=== PATIENT | male | born 1955 | race Caucasian/White ===

== ENCOUNTER → 2024-01-20 10:31 | Outpatient (REF) | payer OTHER, SELFPAY ==
[2024-01-21 20:46] LABS: Hepatitis B Surface Antibody Positive
== END ==
LOC: OHS 10:31
PROVIDERS: ATTENDING PHYSICIAN Nurse Practitioner Family
DX: Z23 Encounter for immunization (principal)
CPT/HCPCS: 36415; 86706

== ENCOUNTER → 2024-02-12 10:53 | Outpatient (REF) | payer MEDICARE, OTHER, SELFPAY | LOC: REG 10:53 | PROVIDERS: ATTENDING PHYSICIAN Specialist | DX: R35.1 Nocturia (principal); R35.0 Frequency of micturition; N40.1 Benign prostatic hyperplasia with lower urinary tract symptoms | CPT/HCPCS: 36415; G0103 ==

== ENCOUNTER 2024-03-15 21:50 | Emergency (ER) | payer MEDICARE, OTHER, SELFPAY ==
[2024-03-15 21:53] VITALS: BP 145/88
[2024-03-15 22:35] VITALS: BMI 30.3
[2024-03-15 22:39] VITALS: BP 138/84
--- NOTE | 2024-03-15 22:46 | ED.GENMED ---
History of Present Illness
<MEAGAN Oliva - Last Filed: 03/16/24 02:34>
General
Chief Complaint: Chest Problem
Source: patient
Exam Limitations: none
Time Seen by Provider: 03/15/24 22:36
History of Present Illness
History of Present Illness:
This is a 68 year old male that comes in with c/o chest pain. States that on March 01 and he started to feel sick. On the 03 of March he tested positive for COVID. States that he stayed home for a week. Staets that he had body aches, was
tired and congested. States that he was using his nebulizer 2-3 times daily with albuterol to help keep any consolidation from happening. States that he just had low energy. 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
States that today he was tired and then tonight his chest just did not feel with. States that he had this occasional pain in the center/left of his chest. States that it was like when he started with Bronchitis. Denies any fever, chills, SOB, abd
pain, nausea, vomiting, diarrhea, headache, dizziness, urinary burning.
Past History
<MEAGAN Oliva - Last Filed: 03/16/24 02:34>
Past History
ED Past Medical History: Asthma, GERD and Other (Pneumonia, chronic bronchitis, restrictive lung disease )
ED Past Surgical History: Orthopedic (Right foot surgery, Left and right Knee surgery, Cervical fusion. ) and Other (Percutaneous Discectomy)
Social History
Tobacco: Non-smoker
Alcohol: None
Personal:
Living: alone
Employment: Employed
Family History
Family History: Other (Father had COPD); Negative Diabetes, Hypertension or Early CAD
Review of Systems
<MEAGAN Oliva - Last Filed: 03/16/24 02:34>
Review of Systems
All Other Systems: ROS reviewed and negative except as documented in HPI and ROS
Constitutional: Reports no symptoms; Denies fever or chills
EENT: Reports no symptoms
Respiratory: Reports no symptoms; Denies cough or trouble breathing
Cardiac: Reports chest pain
ABD/GI: Reports no symptoms; Denies abdominal pain, nausea, vomiting or diarrhea
: Reports no symptoms; Denies dysuria, frequency or urgency
Musculoskeletal: Reports no symptoms
Skin: Reports no symptoms
Neurological: Reports no symptoms; Denies dizzy or headache
Psychiatric: Reports no symptoms
Phy Exam
<MEAGAN Oliva - Last Filed: 03/16/24 02:34>
General Physical Exam
General Presentation: well appearing and no apparent distress
General age: appears stated age
General Skin: warm and dry
General Habitus: normal
General Mental: alert
General Hydration: appears well hydrated
ENT Exam
ENT Exam: TM's normal, pharynx normal and neck supple
Eye Exam
Eye Exam: EOMI
Cardiovascular Exam
Cardiovascular Exam: regular rate/rhythm, no edema, no murmur and normal peripheral pulses
Pulmonary Exam
Pulmonary Exam: no respiratory distress, chest non tender, no rhonchi, no wheezing, no cough and other (Rales at bases)
Gastrointestinal Exam
Gastrointestinal Exam: normal bowel sounds, non tender, soft, no organomegaly, no pulsatile mass and non distended
Musculoskeletal Exam
Musculoskeletal Exam: full ROM and no edema
Skin Exam
Skin Exam: normal color, warm/dry, no rash and no petechia
Psychiatric Exam
Psychiatric Exam: normal mood/affect
Course
<MEAGAN Oliva - Last Filed: 03/16/24 02:34>
Orders/Labs/Results
Orders:
Orders
03/15/24 21:53
EKG [Electrocardiogram (*1)] Urgent
Reason for Study: Chest Pain
EKG- Treatment ONCE
03/15/24 22:46
CR Chest - 2 Views Urgent
Comment:
Reason For Exam: Chest pain,
03/15/24 22:48
Complete Blood Count/With Diff Urgent
Comprehensive Metabolic Panel Urgent
Troponin I Q3H
03/16/24 01:55
Troponin I Q3H
Abnormal Lab Results
03/15/24
22:48
Abs Immat Gran (auto) 0.1 H 10^3/uL
(0-0.05)
Absolute Monos (auto) 0.8 H 10^3/uL
(0.1-0.6)
Immature Gran % 0.8 H %
(0-0.5)
Lymphocytes % 18.8 L %
(20.5-51.1)
Monocytes % 9.9 H %
(1.7-9.3)
Glucose 108 H mg/dl
(70-99)
03/15/24 22:48
03/15/24 22:48
Glucose nonfasting. Otherwise labs normal. Troponin <0.012
Second Troponin 0.013
Vital Signs
Initial and Last Documented VS:
Initial Vital Signs
Temp Pulse Resp BP Pulse Ox
97.9 F 98 17 145/88 98
03/15/24 21:53 03/15/24 21:53 03/15/24 21:53 03/15/24 21:53 03/15/24 21:53
Last Documented Vital Signs
Temp Pulse Resp BP Pulse Ox
97.9 F 67 16 125/92 96
03/15/24 21:53 03/16/24 02:15 03/16/24 02:15 03/16/24 02:00 03/16/24 02:15
[place];Navdeep Worley DO - Last Filed: 03/16/24 00:18>
Orders/Labs/Results
Orders:
Orders
03/15/24 21:53
EKG [Electrocardiogram (*1)] Urgent
Reason for Study: Chest Pain
EKG- Treatment ONCE
03/15/24 22:46
CR Chest - 2 Views Urgent
Comment:
Reason For Exam: Chest pain,
03/15/24 22:48
Complete Blood Count/With Diff Urgent
Comprehensive Metabolic Panel Urgent
Troponin I Q3H
03/16/24 01:55
Troponin I Q3H
Abnormal Lab Results
03/15/24
22:48
Abs Immat Gran (auto) 0.1 H 10^3/uL
(0-0.05)
Absolute Monos (auto) 0.8 H 10^3/uL
(0.1-0.6)
Immature Gran % 0.8 H %
(0-0.5)
Lymphocytes % 18.8 L %
(20.5-51.1)
Monocytes % 9.9 H %
(1.7-9.3)
Glucose 108 H mg/dl
(70-99)
03/15/24 22:48
03/15/24 22:48
Vital Signs
Initial and Last Documented VS:
Initial Vital Signs
Temp Pulse Resp BP Pulse Ox
97.9 F 98 17 145/88 98
03/15/24 21:53 03/15/24 21:53 03/15/24 21:53 03/15/24 21:53 03/15/24 21:53
Last Documented Vital Signs
Temp Pulse Resp BP Pulse Ox
97.9 F 67 16 125/92 96
03/15/24 21:53 03/16/24 02:15 03/16/24 02:15 03/16/24 02:00 03/16/24 02:15
<MEAGAN Oliva - Last Filed: 03/16/24 02:34>
MDM/Problems Addressed
Differential Diagnosis Includes:
Coronary syndrome. PNA,
MDM/Problems Addressed:
This is a 68 year old male that comes in with c/o chest pain. States that this started tonight after he got home for work. States that his chest just did not feel right. States that it was like when he had Bronchitis.
Will check labs, Chest x-ray, ECG
Back into see patient. Explained that his blood work was normal along with the Troponin. Chest x-ray was negative. Patient states that he feels like when he gets Bronchitis. Discussed with patient, will sent prescription to his pharmacy that if he
started to feel worse he can then start the antibiotics. Patient is also requesting Albuterol for his nebulizer at home. Patient to follow up with the family doctor. Patient to return with any concerns.
Chronic conditions affecting care:
Chronic Bronchitis
Chronic conditions affecting care: Asthma
Acute Exacerbation and/or Progression of Chronic Illness:
NA
<MEAGAN Oliva - Last Filed: 03/16/24 02:34>
*Radiology
Radiology exam reviewed: preliminary read by ED provider (Chest-Negative for active disease. )
*Pulse Oximetry
Patient hypoxic: no
*EKG
Interpreted by ED Provider?: Yes
Heart Rate: 86
Rate: normal
Rhythm: sinus
[place]: normal axis
Interval: normal interval
QRS Pattern: normal QRS
Ischemia: no ischemia
*Application Lead Interpretation
Rate: normal
Heart Rate: 84
Rhythm: sinus
*Critical Care Note
Total Time (30-74mins, 75-104mins- exclusive of procedures): Not Applicable
ED Attending Note
<MEAGAN Oliva - Last Filed: 03/16/24 02:34>
-
Portions of this chart may have been created with voice recognition software.� Occasional wrong word or��sound alike� substitutions may have occurred due to the inherent limitations of voice recognition software.
<Navdeep Worley, DO - Last Filed: 03/16/24 00:18>
ED Attending Note
Patient seen and examined by attending physician: Yes
ED Attending Note:
Pleasant 68-year-old male presents to the emergency department with chest discomfort. Symptoms began today. Patient did have COVID. Diagnosed on March 03. States that his breathing has worsened. Denies fever, chills, nausea or vomiting.
Patient was seen in conjunction with the nurse practitioner. I have reviewed and agree with the history and treatment plan presented. On my independent physical exam, patient is awake, alert, and oriented x3, no respiratory distress. Heart is
regular rate and rhythm. Lungs are clear to auscultation bilaterally.
Plan is diagnostic testing and imaging.
Discharge Plan
Departure
Patient Disposition: Home (Routine Discharge)
Date of Disposition: 03/16/24
Time of Disposition: 02:21
Patient with high blood pressure during this ER visit?: Yes
Condition: Good
Covid-19: Not Applicable
Discharge Problem:
Chest pain
Instructions: Chest Pain PCP Follow Up
Prescriptions:
New
amoxicillin-pot clavulanate 875-125 mg tablet
1 tab PO BID Qty: 20 0RF
albuterol sulfate 2.5 mg /3 mL (0.083 %) solution for nebulization
2.5 mg inhalation Q4H PRN (Reason: shortness of breath or wheezing) Qty: 75 0RF
No Action
fluticasone propion-salmeterol [Advair Diskus] 1 DISK blister with device
2 puff inhalation BID
tamsulosin 0.4 MG capsule
0.4 mg PO DAILY
esomeprazole magnesium [Nexium] 40 MG capsule,delayed release(DR/EC)
40 mg PO DAILY
montelukast 10 MG tablet
10 mg PO DAILY
Referrals:
Yong Lambert MD [Family Provider] - Call in 1-3 days for appt
Stand Alone Forms: Return to Work
Activity Restrictions/Additional Instructions:
As discussed, your blood work is normal along with your chest x-ray. Since you feel like this when you are starting with Bronchitis, you have had a prescription sent to your Pharmacy. PLEASE DO NOT TAKE THIS UNLESS YOU START TO FEEL WORSE. Follow up
with the family doctor for recheck. Please increase your water intake to 8-8oz glasses daily. You have also had a prescription for an albuterol solution for your nebulizer sent to your pharmacy. IF YOU HAVE INCREASED OR CHANGING CHEST PAIN,
SHORTNESS OF BREATH OR ANY OTHER CONCERNS PLEASE RETURN TO THE EMERGENCY ROOM.
Interventions
Interventions:
*Risk Screen - Suicide Last Done: 03/15/24 21:55
*General Assessment Last Done: 03/15/24 21:55
*Neglect/Abuse Screening Last Done: 03/15/24 21:55
ED- Fall Risk Assessment Last Done: 03/15/24 22:35
*ED COVID-19 Vaccine History Last Done: 03/15/24 21:55
ED- Cardiac Assessment Last Done: 03/16/24 00:10
ED- Pulmonary Assessment Last Done: 03/16/24 00:10
Discharge Date and Time
Print Language: MONTSERRATIAN
[2024-03-15 22:55] LABS: % Basophils 0.9 % (0-2); % Eosinophils 3.3 % (0-6); % Immature Granulocytes 0.8 % (0-0.5); % Lymphocytes 18.8 % (20.5-51.1); % Monocytes 9.9 % (1.7-9.3); % Neutrophils 66.3 % (42.2-75.2); Absolute Basophils 0.1 10^3/uL (0-0.2); Absolute Eosinophils 0.3 10^3/uL (0-0.7); Absolute Immature Granulocytes 0.1 10^3/uL (0-0.05); Absolute Lymphocytes 1.5 10^3/uL (1.2-3.4); Absolute Monocytes 0.8 10^3/uL (0.1-0.6); Absolute Neutrophils 5.2 10^3/uL (1.4-6.5); Hematocrit 42.1 % (39.0-52.0); Hemoglobin 14.4 g/dL (13.0-18.0); Mean Corp Hgb Conc. 34.2 g/dL (33.0-37.0); Mean Corpuscular Hgb 29.6 pg (27.0-31.0); Mean Corpuscular Volume 86.6 fL (80.0-94.0); Mean Platelet Volume 9.2 fL (7.4-10.4); Nucleated Red Blood Cells % 0 % (-); Platelet Count 223 10^3/uL (130-400); Red Blood Cell Count 4.86 10^6/uL (4.70-6.10); Red Cell Dist. Width 12.6 % (11.5-14.5); White Blood Cell Count 7.8 10^3/uL (4.8-10.8)
[2024-03-15 23:13] LABS: ALT (SGPT) 29 U/L (0-50); AST (SGOT) 32 U/L (17-59); Alkaline Phosphatase 83 U/L (38-126); Blood Urea Nitrogen 20 mg/dl (9-20); Calcium 8.8 mg/dl (8.4-10.2); Carbon Dioxide 24 mmol/L (22-30); Chloride 107 mmol/L (98-107); Estimated Creatinine Clearance 104 ml/min; Glucose 108 mg/dl (70-99); Potassium 4.1 mmol/L (3.5-5.1); Sodium 142 mmol/L (135-145); Total Bilirubin 0.3 mg/dl (0.2-1.3); Total Protein 6.5 g/dl (6.3-8.2); eGFR > 60.00
[2024-03-15 23:20] LABS: Troponin I < 0.012 ng/ml
[2024-03-16 00:17] VITALS: BP 133/92
[2024-03-16 01:48] VITALS: BP 154/99
[2024-03-16 02:00] VITALS: BP 125/92
--- NOTE | 2024-03-16 02:12 | DOWNTIME ---
There was a [employer] Client Dent Remover Downtime on 03/16/2024 from 0100 to 03/16/2024 at 0205 . Downtime documentation of patient's care, including medication administrations, has been reconciled in the electronic record per guidelines. Refer to the
patient's paper chart under the miscellaneous tab to see printed paper medication records and downtime forms.
[2024-03-16 02:32] LABS: Troponin I 0.013 ng/ml
== END 2024-03-16 02:40 | disposition home or self-care (01) ==
LOC: EMR 21:50
PROVIDERS: Clinical Nurse Specialist Family Health; EMERGENCY PHYSICIAN Student in an Organized Health Care Education/Training Program; FAMILY PHYSICIAN Family Medicine
DX: R07.9 Chest pain, unspecified (principal); J45.909 Unspecified asthma, uncomplicated; J42 Unspecified chronic bronchitis; K21.9 Gastro-esophageal reflux disease without esophagitis; Z86.16 Personal history of COVID-19
CPT/HCPCS: 99285; 71046; 80053; 84484; 85025; 93005

== ENCOUNTER → 2024-03-28 15:50 | Outpatient (REF) | payer MEDICARE, OTHER, SELFPAY | LOC: REG 15:50 | PROVIDERS: ATTENDING PHYSICIAN Specialist; FAMILY PHYSICIAN Family Medicine | DX: R97.20 Elevated prostate specific antigen [PSA] (principal) | CPT/HCPCS: 36415; 84153 ==

== ENCOUNTER → 2024-04-04 10:06 | Outpatient (REF) | payer MEDICARE, OTHER, SELFPAY | LOC: CLAB 10:06 | PROVIDERS: ATTENDING PHYSICIAN Specialist | DX: R97.20 Elevated prostate specific antigen [PSA] (principal) | CPT/HCPCS: 88305 ==

== ENCOUNTER → 2024-04-08 09:47 | Outpatient (REF) | payer MEDICARE, OTHER, SELFPAY | LOC: RAD 09:47 | PROVIDERS: ATTENDING PHYSICIAN Specialist; FAMILY PHYSICIAN Family Medicine | DX: C61 Malignant neoplasm of prostate (principal) | CPT/HCPCS: 78306; A9503 ==

== ENCOUNTER → 2024-05-11 15:44 | Outpatient (REF) | payer MEDICARE, OTHER, SELFPAY ==
[2024-05-11 16:47] LABS: ALT (SGPT) 31 U/L (0-50); AST (SGOT) 31 U/L (17-59); Albumin 4.1 g/dl (3.5-5.0); Alkaline Phosphatase 77 U/L (38-126); Blood Urea Nitrogen 21 mg/dl (9-20); Calcium 9.2 mg/dl (8.4-10.2); Carbon Dioxide 27 mmol/L (22-30); Chloride 106 mmol/L (98-107); Glucose 83 mg/dl (70-99); Potassium 4.3 mmol/L (3.5-5.1); Sodium 138 mmol/L (135-145); Total Bilirubin 0.7 mg/dl (0.2-1.3); Total Protein 6.6 g/dl (6.3-8.2); eGFR > 60.00
[2024-05-11 17:00] LABS: % Eosinophils 2.6 % (0-6); % Immature Granulocytes 0.2 % (0-0.5); % Lymphocytes 19.6 % (20.5-51.1); % Monocytes 10.6 % (1.7-9.3); Absolute Basophils 0.1 10^3/uL (0-0.2); Absolute Eosinophils 0.2 10^3/uL (0-0.7); Absolute Lymphocytes 1.2 10^3/uL (1.2-3.4); Absolute Monocytes 0.7 10^3/uL (0.1-0.6); Absolute Neutrophils 4.1 10^3/uL (1.4-6.5); Hematocrit 43.9 % (39.0-52.0); Hemoglobin 14.6 g/dL (13.0-18.0); Mean Corp Hgb Conc. 33.3 g/dL (33.0-37.0); Mean Corpuscular Hgb 29.7 pg (27.0-31.0); Mean Corpuscular Volume 89.2 fL (80.0-94.0); Mean Platelet Volume 10.6 fL (7.4-10.4); Nucleated Red Blood Cells % 0 % (-); Platelet Count 210 10^3/uL (130-400); Red Blood Cell Count 4.92 10^6/uL (4.70-6.10); Red Cell Dist. Width 12.8 % (11.5-14.5); White Blood Cell Count 6.2 10^3/uL (4.8-10.8)
== END ==
LOC: REG 15:44
PROVIDERS: ATTENDING PHYSICIAN Internal Medicine Hematology & Oncology; FAMILY PHYSICIAN Family Medicine
DX: C61 Malignant neoplasm of prostate (principal)
CPT/HCPCS: 36415; 80053; 85025

== ENCOUNTER → 2024-06-09 14:23 | Outpatient (REF) | payer MEDICARE, OTHER, SELFPAY ==
[2024-06-09 15:20] LABS: % Basophils 0.5 % (0-2); % Eosinophils 1.6 % (0-6); % Immature Granulocytes 0.3 % (0-0.5); % Lymphocytes 15.2 % (20.5-51.1); % Monocytes 8.2 % (1.7-9.3); % Neutrophils 74.2 % (42.2-75.2); Absolute Eosinophils 0.1 10^3/uL (0-0.7); Absolute Lymphocytes 1.1 10^3/uL (1.2-3.4); Absolute Monocytes 0.6 10^3/uL (0.1-0.6); Absolute Neutrophils 5.4 10^3/uL (1.4-6.5); Hematocrit 43.5 % (39.0-52.0); Mean Corp Hgb Conc. 34.5 g/dL (33.0-37.0); Mean Corpuscular Hgb 29.8 pg (27.0-31.0); Mean Corpuscular Volume 86.5 fL (80.0-94.0); Nucleated Red Blood Cells % 0 % (-); Platelet Count 179 10^3/uL (130-400); Red Blood Cell Count 5.03 10^6/uL (4.70-6.10); Red Cell Dist. Width 12.6 % (11.5-14.5); White Blood Cell Count 7.3 10^3/uL (4.8-10.8)
[2024-06-09 15:43] LABS: ALT (SGPT) 33 U/L (0-50); AST (SGOT) 29 U/L (17-59); Albumin 4.1 g/dl (3.5-5.0); Alkaline Phosphatase 75 U/L (38-126); Blood Urea Nitrogen 22 mg/dl (9-20); Calcium 9.3 mg/dl (8.4-10.2); Carbon Dioxide 25 mmol/L (22-30); Chloride 105 mmol/L (98-107); Glucose 96 mg/dl (70-99); Potassium 4.1 mmol/L (3.5-5.1); Sodium 138 mmol/L (135-145); Total Bilirubin 0.6 mg/dl (0.2-1.3); Total Protein 6.5 g/dl (6.3-8.2); eGFR > 60.00
== END ==
LOC: REG 14:23
PROVIDERS: ATTENDING PHYSICIAN Internal Medicine Hematology & Oncology; FAMILY PHYSICIAN Family Medicine
DX: C61 Malignant neoplasm of prostate (principal)
CPT/HCPCS: 36415; 80053; 85025

== ENCOUNTER 2024-06-17 11:03 | Emergency (ER) | payer MEDICARE, OTHER, SELFPAY ==
--- NOTE | 2024-06-17 12:20 | ED.GENMED ---
History of Present Illness
General
Chief Complaint: Urinary Symptoms
Source: patient
Time Seen by Provider: 06/17/24 12:03
History of Present Illness
History of Present Illness:
69-year-old male with past medical history of prostatitis, currently undergoing treatment for prostate cancer, started radiation therapy this week presenting to the ER for evaluation of 1 to 2 weeks of urinary hesitancy, weak stream, feeling of
incomplete emptying and intermittent discomfort with urination. Patient states symptoms feel similar to previous episodes of prostatitis/early urinary tract infections. He contacted his radiation oncologist at [facility] who recommended he come to
the ER, attempted to get an appointment with his urologist at [facility] but was unable to be seen in a timely manner. Patient denies any fevers, chills, rigors, back or flank pain, vomiting. Patient states that his radiation oncologist recommended
patient increase his Flomax from once daily to twice daily.
Past History
Past History
ED Past Medical History: Asthma, Cancer (Prostate), GERD and Other (Pneumonia, chronic bronchitis, restrictive lung disease )
ED Past Surgical History: Orthopedic (Right foot surgery, Left and right Knee surgery, Cervical fusion. ) and Other (Percutaneous Discectomy)
Social History
Tobacco: Non-smoker
Alcohol: None
Drug: None
Personal:
Living: alone
Employment: Employed
Family History
Family History: Other (Father had COPD); Negative Diabetes, Hypertension or Early CAD
Review of Systems
Review of Systems
All Other Systems: ROS reviewed and negative except as documented in HPI and ROS
Phy Exam
Physical Exam
Physical Exam:
GENERAL: Alert , in no apparent distress
EYE: clear conjunctiva b/l
HEAD: NCAT
ENT: o/p clr, mmm.
LUNGS: no acute respiratory distress
ABDOMEN: Soft, without focal tenderness, no r/g, no cvat
NEUROLOGICAL: Alert and oriented
SKIN: Warm and dry, skin intact.
MUSCULOSKELETAL: No edema, well perfused.
PSYCH: Normal and appropriate interaction.
Scores
Heart Failure Risk
Heart Failure Risk Score: Not Applicable
Heart Score for Chest Pain Patients
STEMI patient?: Not applicable
Withdrawal Assessment of Alcohol
Withdrawal Assessment Completed?: Not applicable
Course
Orders/Labs/Results
Orders:
Orders
06/17/24 12:04
Bladder Scan- Treatment ONCE
06/17/24 12:16
Urinalysis Reflex To Culture Urgent
Date Specimen was Collected: 06/17/24
Time Specimen was Collected: 12:11
06/17/24 12:45
Basic Metabolic Panel Urgent
Complete Blood Count/With Diff Urgent
06/17/24 13:22
Electrocardiogram (*1) Urgent
Reason for Study: QTc Monitoring
EKG- Treatment ONCE
Abnormal Lab Results
06/17/24
12:45
Absolute Lymphs (auto) 0.8 L 10^3/uL
(1.2-3.4)
Neutrophils % 77.4 H %
(42.2-75.2)
Lymphocytes % 12.7 L %
(20.5-51.1)
Creatinine 0.6 L mg/dL
(0.7-1.3)
06/17/24 12:45
06/17/24 12:45
Vital Signs
Initial and Last Documented VS:
Initial Vital Signs
Temp
98.6 F
06/17/24 11:05
Last Documented Vital Signs
Temp
98.6 F
06/17/24 11:05
MDM/Problems Addressed
Differential Diagnosis Includes:
Prostatitis, BPH, urinary retention, cystitis, side effects from new radiation treatments
MDM/Problems Addressed:
69-year-old male presenting to the emergency department for evaluation of urinary hesitancy, weak stream and pressure within the prostate area. History of prostatitis and urine infections in the past. Postvoid residual with only 69 mL of urine,
doubt retention. Suspect prostatitis versus side effects from radiation treatment is most likely. Will check labs to ensure no renal dysfunction. Urinalysis sent. Anticipate discharge home with antibiotics and close outpatient monitoring
Chronic conditions affecting care: Cancer
Acute Exacerbation and/or Progression of Chronic Illness: Cancer
*Pulse Oximetry
Patient hypoxic: no
*Critical Care Note
Total Time (30-74mins, 75-104mins- exclusive of procedures): Not Applicable
Patient Management
Escalation/DeEscalation of care consider admission/obs:
Patient's labs and urine reassuring. Will treat with Cipro as an outpatient for 2 weeks. EKG shows normal QT interval. Patient stable for discharge.
ED Attending Note
-
Portions of this chart may have been created with voice recognition software.� Occasional wrong word or��sound alike� substitutions may have occurred due to the inherent limitations of voice recognition software.
Discharge Plan
Departure
Patient Disposition: Home (Routine Discharge)
Date of Disposition: 06/17/24
Time of Disposition: 13:19
Patient with high blood pressure during this ER visit?: No
Discharge Problem:
Acute prostatitis
Instructions: Prostatitis (DC)
Prescriptions:
New
ciprofloxacin HCl [Cipro] 500 mg tablet
500 mg PO BID 14 Days Qty: 28 0RF
No Action
fluticasone propion-salmeterol [Advair Diskus] 1 DISK blister with device
2 puff inhalation BID
tamsulosin 0.4 MG capsule
0.4 mg PO DAILY
esomeprazole magnesium [Nexium] 40 MG capsule,delayed release(DR/EC)
40 mg PO DAILY
montelukast 10 MG tablet
10 mg PO DAILY
amoxicillin-pot clavulanate 875-125 mg tablet
1 tab PO BID Qty: 20 0RF
albuterol sulfate 2.5 mg /3 mL (0.083 %) solution for nebulization
2.5 mg inhalation Q4H PRN (Reason: shortness of breath or wheezing) Qty: 75 0RF
Referrals:
Yong Lambert MD [Family Provider] -
Interventions
Interventions:
*Risk Screen - Suicide Last Done: 06/17/24 11:05
*General Assessment Last Done: 06/17/24 11:05
*Neglect/Abuse Screening Last Done: 06/17/24 11:05
*ED COVID-19 Vaccine History Last Done: 06/17/24 11:05
ED-Male Genitourinary Assessment Last Done: 06/17/24 12:16
Discharge Date and Time
Print Language: THAI
[2024-06-17 12:26] LABS: Urine Albumin Negative (Neg - Trace); Urine Bilirubin Negative (Negative); Urine Character Clear (Clear); Urine Color Yellow; Urine Glucose Negative (Negative); Urine Ketone Negative (Negative); Urine Leukocyte Negative (Negative); Urine Nitrite Negative (Negative); Urine Occult Blood Negative (Negative); Urine Specific Gravity 1.015 (<1.030); Urine Urobilinogen Negative (Neg - 1+)
[2024-06-17 13:01] LABS: % Basophils 0.7 % (0-2); % Eosinophils 1.3 % (0-6); % Immature Granulocytes 0.2 % (0-0.5); % Lymphocytes 12.7 % (20.5-51.1); % Monocytes 7.7 % (1.7-9.3); % Neutrophils 77.4 % (42.2-75.2); Absolute Eosinophils 0.1 10^3/uL (0-0.7); Absolute Lymphocytes 0.8 10^3/uL (1.2-3.4); Absolute Monocytes 0.5 10^3/uL (0.1-0.6); Absolute Neutrophils 4.7 10^3/uL (1.4-6.5); Hematocrit 41.8 % (39.0-52.0); Hemoglobin 14.5 g/dL (13.0-18.0); Mean Corp Hgb Conc. 34.7 g/dL (33.0-37.0); Mean Corpuscular Hgb 29.8 pg (27.0-31.0); Mean Corpuscular Volume 85.8 fL (80.0-94.0); Nucleated Red Blood Cells % 0 % (-); Platelet Count 169 10^3/uL (130-400); Red Blood Cell Count 4.87 10^6/uL (4.70-6.10); Red Cell Dist. Width 12.3 % (11.5-14.5); White Blood Cell Count 6.1 10^3/uL (4.8-10.8)
[2024-06-17 13:14] LABS: Blood Urea Nitrogen 15 mg/dl (9-20); Calcium 8.9 mg/dl (8.4-10.2); Carbon Dioxide 26 mmol/L (22-30); Chloride 106 mmol/L (98-107); Glucose 92 mg/dl (70-99); Potassium 4.1 mmol/L (3.5-5.1); Sodium 137 mmol/L (135-145); eGFR > 60.00
[2024-06-17 13:36] VITALS: BP 116/79
== END 2024-06-17 13:53 | disposition home or self-care (01) ==
LOC: EMR 11:03
PROVIDERS: Physician Assistant Medical; EMERGENCY PHYSICIAN Emergency Medicine; FAMILY PHYSICIAN Family Medicine
DX: N41.0 Acute prostatitis (principal); R39.11 Hesitancy of micturition; J44.9 Chronic obstructive pulmonary disease, unspecified; C61 Malignant neoplasm of prostate; Z51.0 Encounter for antineoplastic radiation therapy; Z82.49 Family history of ischemic heart disease and other diseases of the circulatory system; Z87.01 Personal history of pneumonia (recurrent); Z92.3 Personal history of irradiation
CPT/HCPCS: 99283; 80048; 81003; 85025; 93005

== ENCOUNTER → 2024-07-27 13:52 | Outpatient (REF) | payer MEDICARE, OTHER, SELFPAY ==
[2024-07-27 15:30] LABS: ALT (SGPT) 137 U/L (0-50); AST (SGOT) 59 U/L (17-59); Albumin 4.5 g/dl (3.5-5.0); Alkaline Phosphatase 171 U/L (38-126); Blood Urea Nitrogen 28 mg/dl (9-20); Calcium 9.4 mg/dl (8.4-10.2); Carbon Dioxide 26 mmol/L (22-30); Chloride 109 mmol/L (98-107); Glucose 98 mg/dl (70-99); Potassium 4.4 mmol/L (3.5-5.1); Sodium 143 mmol/L (135-145); Total Bilirubin 1.1 mg/dl (0.2-1.3); eGFR > 60.00
== END ==
LOC: REG 13:52
PROVIDERS: ATTENDING PHYSICIAN Internal Medicine Hematology & Oncology; FAMILY PHYSICIAN Family Medicine
DX: R79.89 Other specified abnormal findings of blood chemistry (principal)
CPT/HCPCS: 36415; 80053

== ENCOUNTER → 2024-08-10 15:26 | Outpatient (REF) | payer MEDICARE, OTHER, SELFPAY ==
[2024-08-10 16:25] LABS: % Basophils 0.5 % (0-2); % Eosinophils 4.9 % (0-6); % Immature Granulocytes 0.5 % (0-0.5); % Lymphocytes 11.1 % (20.5-51.1); % Monocytes 11.4 % (1.7-9.3); % Neutrophils 71.6 % (42.2-75.2); Absolute Eosinophils 0.2 10^3/uL (0-0.7); Absolute Lymphocytes 0.4 10^3/uL (1.2-3.4); Absolute Monocytes 0.4 10^3/uL (0.1-0.6); Absolute Neutrophils 2.6 10^3/uL (1.4-6.5); Hemoglobin 13.3 g/dL (13.0-18.0); Mean Corpuscular Hgb 30.9 pg (27.0-31.0); Mean Corpuscular Volume 88.4 fL (80.0-94.0); Mean Platelet Volume 10.3 fL (7.4-10.4); Nucleated Red Blood Cells % 0 % (-); Platelet Count 160 10^3/uL (130-400); Red Cell Dist. Width 13.2 % (11.5-14.5); White Blood Cell Count 3.7 10^3/uL (4.8-10.8)
[2024-08-10 16:47] LABS: ALT (SGPT) 45 U/L (0-50); AST (SGOT) 36 U/L (17-59); Albumin 3.9 g/dl (3.5-5.0); Alkaline Phosphatase 74 U/L (38-126); Blood Urea Nitrogen 24 mg/dl (9-20); Calcium 9.1 mg/dl (8.4-10.2); Carbon Dioxide 26 mmol/L (22-30); Chloride 110 mmol/L (98-107); Glucose 101 mg/dl (70-99); Sodium 140 mmol/L (135-145); Total Bilirubin 0.7 mg/dl (0.2-1.3); Total Protein 6.1 g/dl (6.3-8.2); eGFR > 60.00
== END ==
LOC: REG 15:26
PROVIDERS: ATTENDING PHYSICIAN Internal Medicine Hematology & Oncology; FAMILY PHYSICIAN Family Medicine
DX: C61 Malignant neoplasm of prostate (principal)
CPT/HCPCS: 36415; 80053; 85025

== ENCOUNTER → 2024-08-24 09:53 | Outpatient (REF) | payer MEDICARE, OTHER, SELFPAY ==
[2024-08-24 10:58] LABS: Hematocrit 39.3 % (39.0-52.0); Hemoglobin 13.7 g/dL (13.0-18.0); Mean Corp Hgb Conc. 34.9 g/dL (33.0-37.0); Mean Corpuscular Volume 89.5 fL (80.0-94.0); Nucleated Red Blood Cells % 0 % (-); Platelet Count 183 10^3/uL (130-400); Red Cell Dist. Width 13.2 % (11.5-14.5)
[2024-08-24 11:29] LABS: ALT (SGPT) 43 U/L (0-50); AST (SGOT) 33 U/L (17-59); Albumin 4.1 g/dl (3.5-5.0); Alkaline Phosphatase 73 U/L (38-126); Blood Urea Nitrogen 24 mg/dl (9-20); Calcium 9.3 mg/dl (8.4-10.2); Carbon Dioxide 24 mmol/L (22-30); Chloride 109 mmol/L (98-107); Glucose 88 mg/dl (70-99); Potassium 4.0 mmol/L (3.5-5.1); Sodium 139 mmol/L (135-145); Total Protein 6.3 g/dl (6.3-8.2); eGFR > 60.00
== END ==
LOC: REG 09:53
PROVIDERS: ATTENDING PHYSICIAN Internal Medicine Hematology & Oncology; FAMILY PHYSICIAN Family Medicine
DX: C61 Malignant neoplasm of prostate (principal)
CPT/HCPCS: 36415; 80053; 85025

== ENCOUNTER → 2024-09-29 11:04 | Outpatient (REF) | payer MEDICARE, OTHER, SELFPAY ==
[2024-09-29 12:33] LABS: Hematocrit 41.8 % (39.0-52.0); Hemoglobin 14.2 g/dL (13.0-18.0); Mean Corp Hgb Conc. 34.0 g/dL (33.0-37.0); Mean Corpuscular Volume 92.5 fL (80.0-94.0); Nucleated Red Blood Cells % 0 % (-); Platelet Count 169 10^3/uL (130-400); Red Cell Dist. Width 12.4 % (11.5-14.5)
[2024-09-29 13:04] LABS: ALT (SGPT) 47 U/L (0-50); AST (SGOT) 36 U/L (17-59); Albumin 4.4 g/dl (3.5-5.0); Alkaline Phosphatase 67 U/L (38-126); Blood Urea Nitrogen 26 mg/dl (9-20); Calcium 9.3 mg/dl (8.4-10.2); Carbon Dioxide 26 mmol/L (22-30); Chloride 105 mmol/L (98-107); Glucose 87 mg/dl (70-99); Potassium 4.5 mmol/L (3.5-5.1); Sodium 137 mmol/L (135-145); Total Protein 6.8 g/dl (6.3-8.2); eGFR > 60.00
== END ==
LOC: REG 11:04
PROVIDERS: ATTENDING PHYSICIAN Internal Medicine Hematology & Oncology; FAMILY PHYSICIAN Family Medicine
DX: C61 Malignant neoplasm of prostate (principal)
CPT/HCPCS: 36415; 80053; 85025

== ENCOUNTER → 2024-10-14 12:17 | Outpatient (REF) | payer MEDICARE, OTHER, SELFPAY ==
[2024-10-14 15:07] LABS: PSA, Total - Diagnostic < 0.06 ng/ml (0.0-4.0)
== END ==
LOC: REG 12:17
PROVIDERS: ATTENDING PHYSICIAN Radiology Radiation Oncology; FAMILY PHYSICIAN Family Medicine
DX: C61 Malignant neoplasm of prostate (principal)
CPT/HCPCS: 36415; 84153; 84403

== ENCOUNTER → 2024-11-18 13:59 | Outpatient (REF) | payer MEDICARE, OTHER, SELFPAY ==
[2024-11-18 15:00] LABS: Hematocrit 40.7 % (39.0-52.0); Hemoglobin 14.1 g/dL (13.0-18.0); Mean Corp Hgb Conc. 34.6 g/dL (33.0-37.0); Mean Corpuscular Volume 90.0 fL (80.0-94.0); Nucleated Red Blood Cells % 0 % (-); Platelet Count 197 10^3/uL (130-400); Red Cell Dist. Width 11.6 % (11.5-14.5)
[2024-11-18 15:28] LABS: ALT (SGPT) 34 U/L (0-50); AST (SGOT) 31 U/L (17-59); Albumin 4.2 g/dl (3.5-5.0); Alkaline Phosphatase 75 U/L (38-126); Blood Urea Nitrogen 27 mg/dl (9-20); Calcium 9.4 mg/dl (8.4-10.2); Carbon Dioxide 28 mmol/L (22-30); Chloride 106 mmol/L (98-107); Glucose 94 mg/dl (70-99); Potassium 4.5 mmol/L (3.5-5.1); Sodium 139 mmol/L (135-145); Total Protein 6.6 g/dl (6.3-8.2); eGFR > 60.00
== END ==
LOC: REG 13:59
PROVIDERS: ATTENDING PHYSICIAN Internal Medicine Hematology & Oncology
DX: C61 Malignant neoplasm of prostate (principal)
CPT/HCPCS: 36415; 80053; 85025

== ENCOUNTER → 2024-12-22 14:11 | Outpatient (REF) | payer MEDICARE, OTHER, SELFPAY ==
[2024-12-22 14:49] LABS: Urine Character Clear (Clear)
== END ==
LOC: REG 14:11
PROVIDERS: ATTENDING PHYSICIAN Physician Assistant; FAMILY PHYSICIAN Family Medicine
DX: N40.1 Benign prostatic hyperplasia with lower urinary tract symptoms (principal); R30.0 Dysuria
CPT/HCPCS: 81003; 87086

== ENCOUNTER → 2025-02-09 12:51 | Outpatient (REF) | payer MEDICARE, OTHER, SELFPAY ==
[2025-02-09 13:52] LABS: Hematocrit 40.4 % (39.0-52.0); Hemoglobin 13.6 g/dL (13.0-18.0); Mean Corp Hgb Conc. 33.7 g/dL (33.0-37.0); Mean Corpuscular Volume 89.6 fL (80.0-94.0); Nucleated Red Blood Cells % 0 % (-); Platelet Count 194 10^3/uL (130-400); Red Cell Dist. Width 12.4 % (11.5-14.5)
[2025-02-09 14:27] LABS: ALT (SGPT) 25 U/L (0-50); AST (SGOT) 22 U/L (17-59); Albumin 4.2 g/dl (3.5-5.0); Alkaline Phosphatase 74 U/L (38-126); Blood Urea Nitrogen 26 mg/dl (9-20); Calcium 9.2 mg/dl (8.4-10.2); Carbon Dioxide 26 mmol/L (22-30); Chloride 103 mmol/L (98-107); Glucose 95 mg/dl (70-99); Potassium 4.2 mmol/L (3.5-5.1); Sodium 135 mmol/L (135-145); Total Protein 6.8 g/dl (6.3-8.2); eGFR > 60.00
[2025-02-09 14:54] LABS: PSA, Total - Diagnostic < 0.06 ng/ml (0.0-4.0)
== END ==
LOC: REG 12:51
PROVIDERS: ATTENDING PHYSICIAN Internal Medicine Hematology & Oncology
DX: C61 Malignant neoplasm of prostate (principal)
CPT/HCPCS: 36415; 80053; 84153; 85025